=== PATIENT | female | born 1995 | race African-American/Black ===

== ENCOUNTER 2016-06-12 22:47 | Emergency (ER) | payer OTHER ==
[~2016-06-12] VITALS: Ht 167.6 cm; Wt 78.9 kg
[~2016-06-12 22:47] MED LIST: AUGMENTIN 875-1 EAC1 ORAL; AURALGAN OTIC1 DROP LEFT EAR; CIPRO HC OTIC S10 M1 BOTH EARS; CIPRODEX OTIC7.5 M1 LEFT EAR; CIPROFLOXACIN500 M2 ORAL; CLINDAMYCIN HC150 MG ORAL; CORTISPORIN EAR10 ML LEFT EAR; IBUPROFEN600 MG ORAL; NKM; NORCO 5-325 TA1 EACH ORAL; PENICILLIN V P250 MG PO; PREDNISONE20 MG ORAL
[2016-06-13 00:10] VITALS: BP 120/76
[2016-06-13] MEDS ORDERED: IBUPROFEN600 MG ORAL (00:11)
--- NOTE | 2016-06-13 03:49 | Emergency Room Report ---
History of Present Illness General Chief Complaint: Lower Extremity Injury Source: Patient Present Illness HPI Patient presents complaining of right knee pain States that earlier in the daytime after doing an exercise she felt her right patella dislocate It was dislocated for several seconds And then came back into place she had sharp pain shooting upward and downward in that area and came for further eval She had a similar problem with the left knee Denies any other pelvic pain denies any other trauma Pain is 4/10 sharp localized to the knee Allergies: Coded Allergies: No Known Allergies (Unverified , 09/16/14) Patient History Past Medical History: see triage record Pertinent Family History: none Last Menstrual Period: May Reviewed Nursing Documentation: PMH: Agreed, PSxH: Agreed Nursing Documentation-PMH Past Medical History: No Stated History Review of Systems All Other Systems: negative except mentioned in HPI Physical Exam Vital Signs Date Time Temp Pulse Resp B/P Pulse Ox O2 Delivery O2 Flow Rate FiO2 06/12/16 23:25 98.4 91 16 120/76 97 Room Air Sp02 EP Interpretation: reviewed, normal General Appearance: well appearing, no apparent distress Head: normocephalic, atraumatic Eyes: bilateral eye EOMI, bilateral eye PERRL ENT: normal pharynx, no angioedema Musculoskeletal: normal inspection Neurologic: alert, oriented x3, responsive, information systems operator III-XII nml as tested, motor strength/tone normal Skin: no rash, warm/dry, palpation normal Lymphatic: no adenopathy Medical Decision Making Diagnostic Impression: Primary Impression: knee pain ER Course Patient is a fairly benign exam no signs of any effusion However given her discomfort x-ray imaging was obtained No signs of any acute pathology Patient did not require emergency splinting And is appropriate for close outpatient followup Other X-Ray Diagnostic Results Other X-Ray Diagnostic Results : EP Interpretation: Yes Findings: no fractures, no dislocation, no soft tissue swelling Number of Views: 3 - Right knee Last Vital Signs Date Time Temp Pulse Resp B/P Pulse Ox O2 Delivery O2 Flow Rate FiO2 06/13/16 00:10 98.4 82 16 120/76 97 Room Air Status: improved Disposition: HOME, SELF-CARE Condition: Improved Scripts Ibuprofen* (MOTRIN*) 600 Mg Tablet 600 MG ORAL Q8H Y for For Pain, #30 TAB 0 Refills Prov: AURORA RYDER D.O. 06/13/16 Referrals: [facility],REFERRING (PCP) Patient Instructions: Knee Sprain, [id number], Knee Dislocation, [id number] Additional Instructions: Patient is provided with the discharge instructions notified to follow up with primary doctor in the next 2-3 days otherwise return to the er with any worsening symptoms. Please note that this report is being documented using DRAGON technology. This can lead to erroneous entry secondary to incorrect interpretation by the dictating instrument. AURORA RYDER D.O. Jun 13, 2016 03:49
--- NOTE | 2016-06-13 10:54 | Diagnostic Imaging Report ---
Indication: Pain 3 views of the right knee were obtained. Findings: No acute fracture, malalignment, or joint effusion are identified. Joint space is relatively well-maintained. Bone mineralization is within normal limits for age. Impression: Negative exam
== END 2016-06-13 00:15 | disposition home or self-care (01) ==
LOC: EMR 23:53
DX: M25.561 Pain in right knee (principal)
CPT/HCPCS: 99283

== ENCOUNTER 2016-08-01 21:59 | Emergency (ER) | payer OTHER ==
[~2016-08-01] VITALS: Ht 167.6 cm; Wt 79.4 kg
--- NOTE | 2016-08-01 22:23 | Emergency Room Report ---
History of Present Illness General Chief Complaint: General Complaint Source: Patient Present Illness HPI The patient presents with vaginal bleeding and discharge. The bleeding has been going on since July 19. Her last period was June 26. She feels like she might be and has been vomiting. There's no diarrhea. She also has some difficulty initiating a stream with her urine. She is also complaining of clear discharge. She states that the last time this happened she is . She denies passing any tissue. There are no blood clots. She has intermittent left lower quadrant pain that sometimes is severe 8/10. The pain is fairly mild at the moment. It doesn't radiate. She denies any fevers or chills. She does not know her blood type though she has a child. No chest pain, URI sy, dyspnea, headache, rashes. No joint pain. Allergies: Coded Allergies: No Known Allergies (Unverified , 09/16/14) Patient History Past Medical History: see triage record Social History: Reports: smoking - former Social History Narrative health aide Last Menstrual Period: 06/26/16 Now: No : 1 Para: 1 Reviewed Nursing Documentation: PMH: Agreed, PSxH: Agreed Nursing Documentation-PMH Past Medical History: No History, Except For Review of Systems All Other Systems: negative except mentioned in HPI Physical Exam Vital Signs Date Time Temp Pulse Resp B/P Pulse Ox O2 Delivery O2 Flow Rate FiO2 08/01/16 22:08 98.1 109 16 116/81 99 Room Air Sp02 EP Interpretation: reviewed, normal General Appearance: well appearing, no apparent distress, GCS 15 Head: normocephalic Eyes: bilateral eye PERRL, bilateral eye normal inspection ENT: moist mucus membranes Neck: supple Respiratory: lungs clear, normal breath sounds Cardiovascular #1: regular rate, rhythm Cardiovascular #2: 2+ radial (R) Gastrointestinal: normal inspection, normal bowel sounds, no mass, non- distended, no guarding, no rebound, tenderness - minimal LLQ Genitourinary: no CVA tenderness, deferred - for ultrasound Musculoskeletal: back normal, gait/station normal, normal range of motion Neurologic: alert, oriented x3, grossly normal Psychiatric: mood/affect normal Skin: normal inspection, warm/dry Medical Decision Making Diagnostic Impression: Primary Impression: Abdominal pain Qualified Codes: R10.30 - Lower abdominal pain, unspecified Additional Impressions: Irregular menses UTI (urinary tract infection) Qualified Codes: N30.01 - Acute cystitis with hematuria ER Course Patient presents with abdominal pain and irregular menses. Ddx: , ectopic, viral syndrome, UTI, PID, cyst amongst others. Evaluation with labs and ultrasound. She will receive IV hydration and analgesia. Labs significant for neg preg and pyuria. U/S with possible fibroid, min fluid in dul de sac (no evidence of TOA or PID). Improved with treatment - pain resolved. Discussed findings. Patient stable for outpatient observation and treatment. Laboratory Tests Test 08/01/16 23:31 White Blood Count 8.8 K/UL (4.8-10.8) Red Blood Count 5.10 M/UL (4.20-5.40) Hemoglobin 15.7 G/DL (12.0-16.0) Hematocrit 45.1 % (37.0-47.0) Mean Corpuscular Volume 88 FL (80-99) Mean Corpuscular Hemoglobin 30.9 PG (27.0-31.0) Mean Corpuscular Hemoglobin Concent 34.9 G/DL (32.0-36.0) Red Cell Distribution Width 11.9 % (11.6-14.8) Platelet Count 307 K/UL (150-450) Mean Platelet Volume 6.9 FL (6.5-10.1) Neutrophils (%) (Auto) 42.2 % (45.0-75.0) L Lymphocytes (%) (Auto) 41.4 % (20.0-45.0) Monocytes (%) (Auto) 11.9 % (1.0-10.0) H Eosinophils (%) (Auto) 2.4 % (0.0-3.0) Basophils (%) (Auto) 2.1 % (0.0-2.0) H Prothrombin Time 11.0 SEC (9.30-11.50) Prothrombin Time INR 1.1 (0.9-1.1) PTT 29 SEC (23-33) Urine Color Yellow Urine Appearance Slightly cloudy Urine pH 6 (4.5-8.0) Urine Specific [place] 1.020 (1.005-1.035) Urine Protein 2+ (NEGATIVE) H Urine Glucose (UA) Negative (NEGATIVE) Urine Ketones Negative (NEGATIVE) Urine Occult Blood 5+ (NEGATIVE) H Urine Nitrite Negative (NEGATIVE) Urine Bilirubin Negative (NEGATIVE) Urine Urobilinogen Normal MG/DL (0.0-1.0) Urine Leukocyte Esterase 3+ (NEGATIVE) H Urine RBC Pending Urine WBC Pending Urine Squamous Epithelial Cells Pending Urine Calcium Oxalate Crystals Few /LPF (NONE) Urine Bacteria Pending Sodium Level 138 mEQ/L (135-145) Potassium Level 4.1 mEQ/L (3.4-4.9) Chloride Level 95 mEQ/L (98-107) L Carbon Dioxide Level 26 mEQ/L (20-30) Anion Gap 17 (5-15) H Blood Urea Nitrogen 13 mg/dL (7-23) Creatinine 0.9 mg/dL (0.5-0.9) Estimate Glomerular Filtration Rate > 60 mL/min (>60) Glucose Level 103 mg/dL (74-106) Calcium Level 9.9 mg/dL (8.6-10.2) Total Bilirubin 0.3 mg/dL (0.0-1.2) Aspartate Amino Transferase (AST) 17 U/L (5-40) Alanine Aminotransferase (ALT) 11 U/L (3-33) Alkaline Phosphatase 94 U/L (35-104) Total Protein 8.0 g/dL (6.6-8.7) Albumin 4.4 g/dL (3.5-5.2) Globulin 3.6 g/dL Albumin/Globulin Ratio 1.2 (1.0-2.7) Lipase 24 U/L (< 60) Human Chorionic Gonadotropin, Quant < 1 mIU/mL CT/MRI/US Diagnostic Results CT/MRI/US Diagnostic Results : Imaging Test Ordered: pelvic u/s Impression Impression: Solid fluid in the endocervical canal. Nonspecific, but given stated clinical history likely old blood. Possible endometrial calcifications Small uterine fibroid Negative for adnexal mass Last Vital Signs Date Time Temp Pulse Resp B/P Pulse Ox O2 Delivery O2 Flow Rate FiO2 08/02/16 00:57 98.0 74 16 122/84 99 Room Air Status: improved Disposition: HOME, SELF-CARE Condition: Improved Scripts Nitrofurantoin Monohyd/M-Cryst* (MACROBID 100 MG*) 100 Mg Capsule 100 MG ORAL EVERY 12 HOURS, #14 CAP Prov: Michael Storm M.D. 4/21/17 Ibuprofen* (MOTRIN*) 600 Mg Tablet 600 MG ORAL Q6H Y for For Pain, #20 TAB Prov: Michael Storm M.D. 08/02/16 Tramadol Hcl* (ULTRAM*) 50 Mg Tablet 50 MG ORAL Q6H Y for For Pain, #10 TAB 0 Refills Prov: Michael Storm M.D. 08/02/16 Michael Storm M.D. Aug 01, 2016 22:23
[2016-08-01] MEDS ORDERED: DiphenhydrAMINE 50mg/ml Inj IVP ONE (22:30)
[2016-08-01] MEDS ORDERED: Metoclopramide 10mg/2ml Inj IVP ONE (22:30)
[2016-08-01 23:44] LABS: KETONES,URINE NEGATIVE (NEGATIVE); LEUKOCYTE ESTERASE ,URINE 3+ (NEGATIVE); NITRITE,URINE NEGATIVE (NEGATIVE); PH,URINE 6 (4.5-8.0); PROTEIN,URINE 2+ (NEGATIVE); UROBILINOGEN,URINE NORMAL MG/DL (0.0-1.0)
[2016-08-01 23:50] LABS: BASOPHILS % (AUTO) 2.1 % (0.0-2.0); EOSINOPHILS % (AUTO) 2.4 % (0.0-3.0); LYMPHOCYTES % (AUTO) 41.4 % (20.0-45.0); MEAN CORPUSCULAR HEMOGLOBIN 30.9 PG (27.0-31.0); MEAN CORPUSCULAR HGB CONC 34.9 G/DL (32.0-36.0); MEAN CORPUSCULAR VOLUME 88 FL (80-99); MEAN PLATELET VOLUME 6.9 FL (6.5-10.1); MONOCYTES % (AUTO) 11.9 % (1.0-10.0); NEUTROPHILS % (AUTO) 42.2 % (45.0-75.0); PLATELET COUNT 307 K/UL (150-450); RED CELL DISTRIBUTION WIDTH 11.9 % (11.6-14.8); WHITE BLOOD COUNT 8.8 K/UL (4.8-10.8)
[2016-08-02] LABS: INR 1.1 (0.9-1.1)
[2016-08-02 00:02] LABS: ALANINE AMINOTRANSFERASE 11 U/L (3-33); ALBUMIN/GLOBULIN RATIO 1.2 (1.0-2.7); ANION GAP 17 (5-15); ASPARTATE AMINO TRANSFERASE 17 U/L (5-40); CALCIUM 9.9 mg/dL (8.6-10.2); CARBON DIOXIDE 26 mEQ/L (20-30); CHLORIDE 95 mEQ/L (98-107); CREATININE 0.9 mg/dL (0.5-0.9); GLOMERULAR FILTRATION RATE > 60 mL/min (>60); HEMOLYSIS 6; LIPASE 24 U/L (< 60); POTASSIUM 4.1 mEQ/L (3.4-4.9); SODIUM 138 mEQ/L (135-145)
[2016-08-02 00:07] LABS: APPEARANCE,URINE SLIGHTLY CLOUDY; BACTERIA,URINE FEW /HPF; CALCIUM OXALATE CRYSTALS,UR FEW /LPF; RBC,URINE TNTC /HPF (0 - 2); SQUAMOUS EPITHELIAL CELL,UR MANY /LPF (NONE/OCC); WBC,URINE 40-60 /HPF (0 - 2)
[2016-08-02] MEDS ORDERED: TRAMADOL HCL50 MG ORAL (00:40)
[2016-08-02] MEDS ORDERED: IBUPROFEN600 MG ORAL (00:40)
[2016-08-02] MEDS ORDERED: NITROFURANTOIN100 M2 ORAL (00:40)
[2016-08-02 00:49] VITALS: BP 122/84
[2016-08-02 00:57] VITALS: BP 122/84
--- NOTE | 2016-08-02 08:54 | Diagnostic Imaging Report ---
Indication: Vaginal bleeding, pelvic pain, negative serum test Technique: Transabdominal and transvaginal images. Comparison: None Findings: Uterus measures 6.8 cm length by 4 cm AP. Endometrium measures 6 mm thick. Small amount of fluid is seen within the endocervical canal. Bright echoes are seen in the endometrium, may indicate calcifications. The myometrium demonstrates a 2.1 cm fibroid. Right ovary measures 3.4 cm length. The left ovary measures 2.3 cm length. No adnexal mass demonstrated. Normal ovarian blood flow area no free cul-de-sac fluid Impression: Solid fluid in the endocervical canal. Nonspecific, but given stated clinical history likely old blood. Possible endometrial calcifications Small uterine fibroid Negative for adnexal mass
== END 2016-08-02 00:55 | disposition home or self-care (01) ==
LOC: EMR 22:26
DX: R10.30 Lower abdominal pain, unspecified (principal); N30.01 Acute cystitis with hematuria; N92.6 Irregular menstruation, unspecified; Z87.891 Personal history of nicotine dependence; D25.9 Leiomyoma of uterus, unspecified
CPT/HCPCS: 36415; 76830; 76856; 80053; 81003; 83690; 84702; 85025; 85610; 85730; 86850; 86900; 86901; 87086; 96360; 96374; 96375; 99284; J1200; J2765